=== PATIENT | female | born 1955 | race Caucasian/White ===

== ENCOUNTER 2016-10-28 08:53 | Day surgery (SDC) | payer BC ==
[2016-10-27 09:29] LABS: BASOPHILS 0.5 %; BASOPHILS ABSOLUTE 0.04 10/3/uL (0.0-0.16); EOSINOPHILS 4.1 %; EOSINOPHILS ABSOLUTE 0.36 10/3/uL (0.0-0.53); HEMOGLOBIN 10.4 g/dL (12.0-16.0); IMMATURE GRANULOCYTES 0.8 %; IMMATURE GRANULOCYTES ABSOLUTE 0.07 10/3/uL (0.0-0.11); LYMPHOCYTES 13.3 %; LYMPHOCYTES ABSOLUTE 1.17 10/3/uL (0.67-4.30); MEAN CORPUS HGB CONC 32.5 g/dL (32.0-36.0); MEAN CORPUSCULAR HEMOGLOB 28.3 pg (26.0-34.0); MEAN PLATELET VOLUME 9.2 fL (9.2-13.0); MONOCYTES 11.3 %; MONOCYTES ABSOLUTE 0.99 10/3/uL (0.21-1.20); NEUTROPHILS ABSOLUTE 6.15 10/3/uL (2.02-8.40); PLATELET COUNT 429 10/3/uL (150-400); RBC DISTRIBUTION WIDTH 15.5 % (12.0-16.0); RED CELL COUNT 3.68 10/6/uL (4.0-5.6); WHITE BLOOD CELLS 8.8 10/3/uL (4.5-10.5)
[2016-10-27 09:30] LABS: MANUAL DIFF NO %
[2016-10-27 09:45] LABS: BUN (BLOOD UREA NITROGEN) 34 MG/DL (6-23); CALCIUM, SERUM 9.7 MG/DL (8.5-10.4); CHLORIDE, SERUM 108 MMOL/L (96-112); CO2 (CARBON DIOXIDE) 23 MMOL/L (24-34); CREATININE 2.13 MG/DL (0.55-1.02); GFR AFRICAN AMERICAN 28 ML/MIN (>=60); GFR NON AFRICAN AMERICAN 24 ML/MIN (>=60); GLUCOSE, SERUM 126 MG/DL (60-99); POTASSIUM, SERUM 4.6 MMOL/L (3.5-5.3); SODIUM, SERUM 138 MMOL/L (135-148)
--- NOTE | ~2016-10-28 | OP ---
Record Of Operation [facility] [address] [place]. [address] NAME: CARLOTA ERICKSON : 51 STATUS : [facility]#: [id number] AGE: 61 ADM/REG DATE : 10/28/16 MR#: [id number] REPORT SERV DATE: 10/29/16 DICTATED BY: ANA PEDRO DATE: 10/28/16 REPORT STATUS : Draft TRANSCRIBED BY: MODL DATE: 10/28/16 DATE OF PROCEDURE: 10/28/2016 PREOPERATIVE DIAGNOSES: 1. Bilateral hydronephrosis. 2. Extravasation from left distal ureter. POSTOPERATIVE DIAGNOSES: 1. Bilateral hydronephrosis. 2. Extravasation from left distal ureter. 3. Primary peritoneal cancer. DRAINS: 6-Serbian bilateral ureteral stents. PROCEDURE PERFORMED: 1. Cystoscopy with bilateral retrograde pyelograms and bilateral ureteral stent exchanges. 2. Removal of right nephrostomy tube. ANESTHESIA: General. BLOOD LOSS: Minimal. COMPLICATIONS: None. SPECIMEN: Bladder urine for culture. INDICATIONS: Ms. Erickson is a 61-year-old with primary peritoneal cancer. After resection showed a right ureteral obstruction of the distal ureter, this was treated with ureteral reimplantation by Dr. Becerra. Over the last several weeks, her creatinine is progressively risen despite bilateral indwelling stents. Nephrostomy tubes are placed and nephrostogram showed a question of extravasation from the left distal ureter. This was the site that had not been reimplanted. TECHNIQUE: Informed consent was obtained. Ancef was given preoperatively, and she was brought to the operating room. General anesthesia was administered. Genitals and perineum were prepped and draped in the lithotomy position in sterile fashion. Rigid cystoscopy was performed. The bladder had been previously hitched on the right. No efflux from the sun'aq right UO and indwelling right ureteral stent was encrusted. I grabbed the right ureteral stent and removed this. Wire was passed through the stent up to the right kidney and placed a second safety wire with a Toño catheter. Pullback retrograde pyelogram was performed. There was no extravasation from the right. There was hydronephrosis. No evidence of any obvious upper ureteral obstruction. The right nephrostomy tube was sitting centrally in the renal pelvis. Under fluoroscopic guidance, I placed a 6-Serbian 22 cm right double-J ureteral stent. The dangling string was removed. Under fluoroscopic guidance, I removed the right nephrostomy Record Of Operation [place] [address] [place]. [address] NAME: CARLOTA ERICKSON : 51 STATUS : [facility]#: [id number] AGE: 61 ADM/REG DATE : 10/28/16 MR#: [id number] REPORT SERV DATE: 10/29/16 DICTATED BY: ANA PEDRO DATE: 10/28/16 REPORT STATUS : Draft TRANSCRIBED BY: EVER DATE: 10/28/16 tube. The left stent was then grasped and extracted out to the meatus. I placed a wire through the stent and removed the stent. Pullback left retrograde pyelogram was performed. Left retrograde pyelogram showed [id number] left hydronephrosis. Nephrostomy tube was coiled in the lower pole calyx. The Pollack catheter was backed up to the mid ureter. Repeat injection of dye showed extravasation from the distal ureter just below the iliac vessels. There were two surgical clips nearby with slight amount of extravasation, this was medial. This extravasation appeared to be less than the visualized with the left nephrostogram two weeks ago. I placed a 6-Serbian 24 cm left double-J ureteral stent under cystoscopic guidance. Coil was confirmed fluoroscopically in the upper pole calyx and cystoscopically in the bladder. The bladder was drained. The cystoscope was removed. POSTOPERATIVE PLAN: To watch her creatinine closely after removal of the right nephrostomy. On the left, she will need to keep a nephrostomy. This will be exchanged in four weeks in Interventional Radiology. I will exchange stents in two and a half to three months if the extravasation fails to resolve from the left distal ureter, then left ureteral reimplantation would be considered. Any radiation to the pelvis should exclude the ureter below the iliacs. LIBERTY/EVER Ana Pedro M.D. / [id number] CC: Keeley Stein [facility] [place]
[~2016-10-28 08:53] MED LIST: CIP5 PO; CYMBALTA20 PO; LOVENOX80 SC
[2016-11-19] MEDS ORDERED: ZYVOXPO PO (16:34)
[2017-01-08] MEDS ORDERED: PYR200 PO (15:47)
== END 2016-10-28 18:21 | disposition home or self-care (01) ==
LOC: SDC 08:53
PROVIDERS: Urology
PROC: BT141ZZ Fluoroscopy of Kidneys, Ureters and Bladder using Low Osmolar Contrast (ICD-10-PCS; 2016-10-28)
PROC: 0T788DZ Dilation of Bilateral Ureters with Intraluminal Device, Via Natural or Artificial Opening Endoscopic (ICD-10-PCS; principal; 2016-10-28 10:15)
DX: N13.30 Unspecified hydronephrosis (principal); R39.0 Extravasation of urine; C48.2 Malignant neoplasm of peritoneum, unspecified; F32.9 Major depressive disorder, single episode, unspecified; Z88.0 Allergy status to penicillin; Z88.5 Allergy status to narcotic agent; Z79.899 Other long term (current) drug therapy; Z85.43 Personal history of malignant neoplasm of ovary; Z92.21 Personal history of antineoplastic chemotherapy; Z90.49 Acquired absence of other specified parts of digestive tract; Z90.710 Acquired absence of both cervix and uterus; Z90.722 Acquired absence of ovaries, bilateral; Z98.890 Other specified postprocedural states
CPT/HCPCS: 74420; 80048; 85025; 87086; C1758; C1769; C1892; C2617; J0690; J1200; J2250; J2370; J2405; J2710; J3010; Q9967